=== PATIENT | male | born 1925 | race Caucasian/White ===

== ENCOUNTER 2016-07-08 15:16 | Emergency (ER) | payer MEDICARE, OTHER ==
--- NOTE | 2016-07-08 15:28 | EDM.PDOC ---
ED HPI Skin/Rash - General Chief Complaint: Skin Complaint Stated Complaint: CUT ON RT HAND Time Seen by Provider: 07/08/16 15:31 Source: Reports: Patient, Family History Limitations: Reports: No limitations - History of Present Illness INITIAL COMMENTS - FREE TEXT/NARRATIVE: HISTORY AND PHYSICAL: [89-year-old male who presents with a skin tear to the dorsum of his right hand has been present for 2 days and continues to have weeping and bleeding] History of Present Illness: [ injury with gauze wrapped around the hand] Patient says he hit his hand during his sleep and sustained the injury Review of Systems: As per history of present illness and below otherwise all systems reviewed and negative. Past medical history: As per history of present illness and as reviewed below otherwise noncontributory. Surgical history: As per history of present illness and as reviewed below otherwise noncontributory. Social history: No reported history of drug or alcohol abuse. Family history: As per history of present illness and as reviewed below otherwise noncontributory. Physical exam: alert and oriented answers questions appropriately HEENT: Atraumatic, normocehpalic, pupils reactive, negative for conjunctival pallor or scleral icterus, mucous membranes moist, throat clear, neck supple, nontender, trachea midline. Lungs: Clear to auscultation, breath sounds equal bilaterally, chest non tender. Heart: S1S2, regular, negative for clicks, rubs, or JVD. Abdomen: Soft, nondistended, nontender. Negative for masses or hepatossplenmegaly. Negative for costovertebral tenderness. Pelvis: Stable nontender. Genitourinary: Deferred. Rectal: Deferred Extremities: Dorsum of right hand with angle skin tear 3 cm in diameter, negative for cords or calf pain. He has full range of motion incision is intact to finger. Capillary refill less than 2 seconds. Neurovascular unremarkable. Neuro: Awake, alert, oriented. Cranial nerves II through XII unremarkable. Cerebellum unremarkable. Motor and sensory unremarkable throughout. Exam nonfocal. Benzocaine applied to either side of the skin tear half-inch Steri-Strips were utilized and skin was pulled into correct position. Mild oozing hemostasis was attained. Diagnostics: [] Therapeutics: [Steri-Strips applied] Impression: [Skin tear] Plan: [Home Instructions on dressing there is with gauze pads should the bleeding recur not to pull the tape off follow up with your primary care provider ] Definitive disposition and diagnosis as appropriate pending reevaluation and review of above. Timing: Reports: still present Location, Skin: Reports: upper extremity, right - Related Data Allergies Allergy/AdvReac Type Severity Reaction Status Date / Time No Known Allergies Allergy Verified 10/06/14 12:12 Home Meds: Ambulatory Orders Medication Instructions Recorded Confirmed Furosemide [Furosemide] 40 mg PO ASDIRECTED 10/06/14 05/01/15 Insuln Asp Prot/Insulin Aspart 12 unit SQ DAILY 10/06/14 05/01/15 [NovoLOG Mix 70-30] Lisinopril [Lisinopril] 5 mg PO DAILY 10/06/14 05/01/15 Metoprolol Tartrate [Lopressor] 25 mg PO BID 10/06/14 05/01/15 Simvastatin [Simvastatin] 20 mg PO BEDTIME 10/06/14 05/01/15 Warfarin Sodium [Warfarin Sodium] 5 mg PO DAILY 10/06/14 05/15/15 metFORMIN [Glucophage] 500 mg PO TID 10/06/14 05/01/15 Acetaminophen with Codeine 1 tab PO QID 05/01/15 05/01/15 [Acetaminophen-Cod #3] Ascorbic Acid/Bioflavonoids [Vit 1 tab PO DAILY 05/01/15 05/01/15 C-Bioflavonoids SA] Aspirin [Low Dose Aspirin EC] 1 tab PO DAILY 05/01/15 05/01/15 Calcium Carbonate/Vitamin D3 1 tab PO DAILY 05/01/15 05/01/15 [Calcium 600 + Vit D 200] Digoxin 1 tab PO DAILY 05/01/15 05/01/15 Multivitamin [Multi-Day Vitamins] 1 tab PO DAILY 05/01/15 05/01/15 Polyethylene Glycol 3350 1 dose PO ASDIRECTED 05/01/15 05/01/15 Past Medical History HEENT History: Reports: Hard of hearing, Impaired vision, Other (see below) Other HEENT History: wears glasses, has upper dentures, will receive hearing aides next month, Macular Degeneration Cardiovascular History: Reports: Afib, Heart Failure, High cholesterol, Hypertension Other Cardiovascular History: wears support hose every other day Respiratory History: Reports: None Gastrointestinal History: Reports: None Genitourinary History: Reports: Retention, urinary Musculoskeletal History: Reports: Arthritis Neurological History: Reports: Other (see below) Other Neuro History: states has "dizzy spells" Psychiatric History: Reports: None Endocrine/Metabolic History: Reports: Diabetes, type II Hematologic History: Reports: None Immunologic History: Reports: None Oncologic (Cancer) History: Reports: None Dermatologic History: Reports: None - Past Surgical History Head Surgeries/Procedures: Reports: None HEENT Surgical History: Reports: None Cardiovascular Surgical History: Reports: None Respiratory Surgical History: Reports: None GI Surgical History: Reports: None Male Surgical History: Reports: TURP-Transurethral resection of prostate Endocrine Surgical History: Reports: None Neurological Surgical History: Reports: None Musculoskeletal Surgical History: Reports: Hip replacement, Other (see below) Other Musculoskeletal Surgeries/Procedures:: 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 ED EXAM, SKIN/RASH Exam: See Below Eye Exam: bilateral eye: abnormal EOM ED SKIN PROCEDURES - Laceration/Wound Repair Right Middle Anterior Hand Lac/wound length in cm: 3 Appearance: superficial Distal NVT: neuro & vascular intact, no tendon injury Closed with: steri-strips Departure - Departure Time of Disposition: 15:36 Disposition: Home, Self-Care 01 Condition: good Clinical Impression: Skin tear of right hand without complication Qualifiers: Encounter type: initial encounter Qualified Code(s): S61.411A - Laceration without foreign body of right hand, initial encounter Forms: ED Department Discharge
[2016-07-08 15:52] VITALS: BP 104/70
== END 2016-07-08 15:50 | disposition home or self-care (01) ==
LOC: MW.ED 15:16
DX: S61.411A Laceration without foreign body of right hand, initial encounter (principal); I48.91 Unspecified atrial fibrillation; I11.0 Hypertensive heart disease with heart failure; I50.9 Heart failure, unspecified; E78.00 Pure hypercholesterolemia, unspecified; M19.90 Unspecified osteoarthritis, unspecified site; E11.9 Type 2 diabetes mellitus without complications; Z79.4 Long term (current) use of insulin; Z79.899 Other long term (current) drug therapy; Z79.82 Long term (current) use of aspirin; Z87.891 Personal history of nicotine dependence; Z96.643 Presence of artificial hip joint, bilateral; W26.8XXA Contact with other sharp object(s), not elsewhere classified, initial encounter; Y93.84 Activity, sleeping
CPT/HCPCS: 99282

== ENCOUNTER 2017-03-26 00:47 | Observation (INO) | payer MEDICARE, OTHER ==
[2017-03-26] MEDS ORDERED: Sodium Chloride 0.9% 2.5 ML Syringe FLUSH PRN ×2 (00:59→03:24)
[2017-03-26] MEDS ORDERED: Sodium Chloride 0.9% 10 ML Syringe FLUSH PRN ×2 (00:59→03:24)
--- NOTE | 2017-03-26 01:09 | EDM.PDOC ---
ED HPI GENERAL MEDICAL PROBLEM - General Chief Complaint: Respiratory Problem Stated Complaint: CHEST PAINS Time Seen by Provider: 03/26/17 01:06 - History of Present Illness INITIAL COMMENTS - FREE TEXT/NARRATIVE: HISTORY AND PHYSICAL: History of present illness: Patient 89-year-old white male patient coronary artery disease including stent placement 3 proximally one year prior he also has history of chronic atrial fibrillation and is on warfarin he presents tonight with 6 months of shortness of breath that has gotten progressively worse last 24 hours with associated chest pain he did see his Dr. Pollock recently do not feel is cardiac or pulmonary perforation he denies palpitations nausea vomiting or diaphoresis Review of systems: As per history of present illness and below otherwise all systems reviewed and negative. Past medical history: As per history of present illness and as reviewed below otherwise noncontributory. Surgical history: As per history of present illness and as reviewed below otherwise noncontributory. Social history: No reported history of drug or alcohol abuse. Family history: As per history of present illness and as reviewed below otherwise noncontributory. Physical exam: HEENT: Atraumatic, normocephalic, pupils reactive, negative for conjunctival pallor or scleral icterus, mucous membranes moist, throat clear, neck supple, nontender, trachea midline. Lungs: Clear to auscultation, breath sounds equal bilaterally, chest nontender. Heart: S1S2, irregular, negative for clicks, rubs, or JVD. Abdomen: Soft, nondistended, nontender. Negative for masses or hepatosplenomegaly. Negative for costovertebral tenderness. Pelvis: Stable nontender. Genitourinary: Deferred. Rectal: Deferred. Extremities: Atraumatic, negative for cords or calf pain. Neurovascular unremarkable. Neuro: Awake, alert, oriented. Cranial nerves II through XII unremarkable. Cerebellum unremarkable. Motor and sensory unremarkable throughout. Exam nonfocal. Diagnostics: CBC CMP troponin PT/INR chest x-ray EKG BNP Therapeutics: IV O2 monitor Impression: #1 dyspnea #2 chest pain #3 history of atrial fibrillation #4 history of coronary artery disease Definitive disposition and diagnosis as appropriate pending reevaluation and review of above. Chest Pain Score (Numeric/FACES): 8 - Related Data Allergies Allergy/AdvReac Type Severity Reaction Status Date / Time No Known Allergies Allergy Verified 03/26/17 00:55 Home Meds: Home Meds Furosemide [Furosemide] 40 mg PO ASDIRECTED 10/06/14 [History] Insuln Asp Prot/Insulin Aspart [NovoLOG Mix 70-30] 12 unit SQ DAILY 10/06/14 [ History] Metoprolol Tartrate [Lopressor] 25 mg PO BID 10/06/14 [History] Simvastatin [Simvastatin] 20 mg PO BEDTIME 10/06/14 [History] Warfarin Sodium [Warfarin Sodium] 5 mg PO DAILY 10/06/14 [History] metFORMIN [Glucophage] 500 mg PO TID 10/06/14 [History] Acetaminophen with Codeine [Acetaminophen-Cod #3] 1 tab PO QID 05/01/15 [History ] Aspirin [Low Dose Aspirin EC] 1 tab PO DAILY 05/01/15 [History] Past Medical History HEENT History: Reports: Hard of Hearing, Impaired Vision, Other (See Below) Other HEENT History: wears glasses, has upper dentures, will receive hearing aides next month, Macular Degeneration Cardiovascular History: Reports: Afib, Heart Failure, High Cholesterol, Hypertension, Stents Other Cardiovascular History: wears support hose every other day Respiratory History: Reports: None Gastrointestinal History: Reports: None Genitourinary History: Reports: Retention, Urinary Musculoskeletal History: Reports: Arthritis Neurological History: Reports: Other (See Below) Other Neuro History: states has "dizzy spells" Psychiatric History: Reports: None Endocrine/Metabolic History: Reports: Diabetes, Type II Hematologic History: Reports: None Immunologic History: Reports: None Oncologic (Cancer) History: Reports: None Dermatologic History: Reports: None - Past Surgical History Male Surgical History: Reports: TURP-Transurethral Resection of Prostate Musculoskeletal Surgical History: Reports: Hip Replacement, Other (See Below) Social & Family History - Tobacco Use Smoking Status *Q: Never Smoker Second Hand Smoke Exposure: No - Alcohol Use Days Per Week of Alcohol Use: 2 - Recreational Drug Use Recreational Drug Use: No Drug Use in Last 12 Months: No ED ROS GENERAL - Review of Systems Review Of Systems: ROS reveals no pertinent complaints other than HPI. ED EXAM, GENERAL - Physical Exam Exam: See Below (Dictation) Course - Vital Signs Last Recorded V/S: Last Vital Signs Temp 35.9 C 03/26/17 01:29 Pulse 64 03/26/17 01:38 Resp 17 03/26/17 01:38 BP 113/62 03/26/17 01:38 Pulse Ox 99 03/26/17 01:38 - Orders/Labs/Meds Orders: Active Orders 24 hr Category Date Time Status Cardiac Monitoring [RC] . DIRECTED Care 03/26/17 00:59 Active EKG Documentation Completion [RC] STAT Care 03/26/17 00:59 Active Oxygen Therapy, ED [RC] ASDIRECTED Care 03/26/17 00:59 Active Pulse Oximetry [RC] ASDIRECTED Care 03/26/17 00:59 Active Chest 1V Frontal [CR] Stat Exams 03/26/17 01:02 Taken Chest 2V [CR] Stat Exams 03/26/17 01:00 Stop Req Furosemide [Lasix] Med 03/26/17 02:28 Once 40 mg IVPUSH NOW ONE Sodium Chloride 0.9% [Saline Flush] Med 03/26/17 00:59 Active 10 ml FLUSH ASDIRECTED PRN Sodium Chloride 0.9% [Saline Flush] Med 03/26/17 00:59 Active 2.5 ml FLUSH ASDIRECTED PRN Saline Lock Insert [OM.PC] Stat Oth 03/26/17 00:59 Ordered Medication Orders Furosemide (Lasix) 40 mg IVPUSH NOW ONE Stop: 03/26/17 02:29 Sodium Chloride (Saline Flush) 10 ml FLUSH ASDIRECTED PRN PRN Reason: Keep Vein Open Last Admin: 03/26/17 01:25 Dose: 10 ml Sodium Chloride (Saline Flush) 2.5 ml FLUSH ASDIRECTED PRN PRN Reason: Keep Vein Open Last Admin: 03/26/17 01:25 Dose: 2.5 ml Labs: Laboratory Tests 03/26/17 03/26/17 03/26/17 Range/Units 00:19 00:19 00:19 WBC 6.23 (4.0-11.0) K/uL RBC 4.38 L (4.50-5.90) M/uL Hgb 13.6 (13.0-17.0) g/dL Hct 42.2 (38.0-50.0) % MCV 96.3 (80.0-98.0) fL MCH 31.1 (27.0-32.0) pg MCHC 32.2 (31.0-37.0) g/dL RDW Std Deviation 49.6 (28.0-62.0) fl RDW Coeff of Cleopatra 14 (11.0-15.0) % Plt Count 160 (150-400) K/uL MPV 9.80 (7.40-12.00) fL Neut % (Auto) 65.3 (48.0-80.0) % Lymph % (Auto) 22.8 (16.0-40.0) % Green % (Auto) 10.0 (0.0-15.0) % Eos % (Auto) 1.4 (0.0-7.0) % Baso % (Auto) 0.5 (0.0-1.5) % Neut # (Auto) 4.1 (1.4-5.7) K/uL Lymph # (Auto) 1.4 (0.6-2.4) K/uL Green # (Auto) 0.6 (0.0-0.8) K/uL Eos # (Auto) 0.1 (0.0-0.7) K/uL Baso # (Auto) 0.0 (0.0-0.1) K/uL INR 2.26 H (0.86-1.11) Sodium 140 (136-146) mmol/L Potassium 4.8 (3.5-5.1) mmol/L Chloride 105 (98-110) mmol/L Carbon Dioxide 23 (21-31) mmol/L BUN 28 H (6.0-23.0) mg/dL Creatinine 0.9 (0.6-1.5) mg/dL Est Cr Clr Drug Dosing 50.21 mL/min Estimated GFR (MDRD) > 60.0 ml/min Glucose 115 H (60-110) mg/dL Calcium 9.3 (8.8-10.8) mg/dL Total Bilirubin 1.6 H (0.1-1.5) mg/dL AST 26 (5-40) IU/L ALT 22 (8-54) IU/L Alkaline Phosphatase 60 (40-150) CK-MB (CK-2) 7.1 H (0-6.6) ng/ml Troponin I < 0.10 (0.0-0.29) NG/ML B-Natriuretic Peptide (<100) PG/ML Total Protein 6.8 (6.0-8.0) g/dL Albumin 4.2 (3.4-4.8) g/dL Globulin 2.6 (2.0-3.5) g/dL Albumin/Globulin Ratio 1.6 (1.3-2.8) 03/26/17 Range/Units 00:19 WBC (4.0-11.0) K/uL RBC (4.50-5.90) M/uL Hgb (13.0-17.0) g/dL Hct (38.0-50.0) % MCV (80.0-98.0) fL MCH (27.0-32.0) pg MCHC (31.0-37.0) g/dL RDW Std Deviation (28.0-62.0) fl RDW Coeff of Cleopatra (11.0-15.0) % Plt Count (150-400) K/uL MPV (7.40-12.00) fL Neut % (Auto) (48.0-80.0) % Lymph % (Auto) (16.0-40.0) % Green % (Auto) (0.0-15.0) % Eos % (Auto) (0.0-7.0) % Baso % (Auto) (0.0-1.5) % Neut # (Auto) (1.4-5.7) K/uL Lymph # (Auto) (0.6-2.4) K/uL Green # (Auto) (0.0-0.8) K/uL Eos # (Auto) (0.0-0.7) K/uL Baso # (Auto) (0.0-0.1) K/uL INR (0.86-1.11) Sodium (136-146) mmol/L Potassium (3.5-5.1) mmol/L Chloride (98-110) mmol/L Carbon Dioxide (21-31) mmol/L BUN (6.0-23.0) mg/dL Creatinine (0.6-1.5) mg/dL Est Cr Clr Drug Dosing mL/min Estimated GFR (MDRD) ml/min Glucose (60-110) mg/dL Calcium (8.8-10.8) mg/dL Total Bilirubin (0.1-1.5) mg/dL AST (5-40) IU/L ALT (8-54) IU/L Alkaline Phosphatase (40-150) CK-MB (CK-2) (0-6.6) ng/ml Troponin I (0.0-0.29) NG/ML B-Natriuretic Peptide 2124 H (<100) PG/ML Total Protein (6.0-8.0) g/dL Albumin (3.4-4.8) g/dL Globulin (2.0-3.5) g/dL Albumin/Globulin Ratio (1.3-2.8) Meds: Medications Generic Name Dose Route Start Last Admin Trade Name Freq PRN Reason Stop Dose Admin Furosemide 40 mg 03/26/17 02:28 Lasix IVPUSH 03/26/17 02:29 NOW ONE Sodium Chloride 10 ml 03/26/17 00:59 03/26/17 01:25 Saline Flush FLUSH 10 ml ASDIRECTED PRN Administration Keep Vein Open Sodium Chloride 2.5 ml 03/26/17 00:59 03/26/17 01:25 Saline Flush FLUSH 2.5 ml ASDIRECTED PRN Administration Keep Vein Open Discontinued Medications Generic Name Dose Route Start Last Admin Trade Name Freq PRN Reason Stop Dose Admin Aspirin 324 mg 03/26/17 01:21 03/26/17 01:26 Aspirin PO 03/26/17 01:22 324 mg ONETIME ONE Administration Nitroglycerin 1 gm 03/26/17 01:21 03/26/17 01:26 Nitro-Bid 2% TOP 03/26/17 01:22 1 gm ONETIME ONE Administration Departure - Departure Time of Disposition: 02:29 Disposition: Refer to Observation Condition: Good Clinical Impression: Dyspnea, Chest pain, Congestive heart failure - Discharge Information Forms: ED Department Discharge - My Orders Last 24 Hours: My Active Orders 03/26/17 00:59 Cardiac Monitoring [RC] . DIRECTED EKG Documentation Completion [RC] STAT Oxygen Therapy, ED [RC] ASDIRECTED Pulse Oximetry [RC] ASDIRECTED Sodium Chloride 0.9% [Saline Flush] 10 ml FLUSH ASDIRECTED PRN Sodium Chloride 0.9% [Saline Flush] 2.5 ml FLUSH ASDIRECTED PRN Saline Lock Insert [OM.PC] Stat 03/26/17 01:00 Chest 2V [CR] Stat 03/26/17 01:02 Chest 1V Frontal [CR] Stat 03/26/17 02:28 Furosemide [Lasix] 40 mg IVPUSH NOW ONE - Assessment/Plan Last 24 Hours: My Active Orders 03/26/17 00:59 Cardiac Monitoring [RC] . DIRECTED EKG Documentation Completion [RC] STAT Oxygen Therapy, ED [RC] ASDIRECTED Pulse Oximetry [RC] ASDIRECTED Sodium Chloride 0.9% [Saline Flush] 10 ml FLUSH ASDIRECTED PRN Sodium Chloride 0.9% [Saline Flush] 2.5 ml FLUSH ASDIRECTED PRN Saline Lock Insert [OM.PC] Stat 03/26/17 01:00 Chest 2V [CR] Stat 03/26/17 01:02 Chest 1V Frontal [CR] Stat 03/26/17 02:28 Furosemide [Lasix] 40 mg IVPUSH NOW ONE
[2017-03-26] MEDS ORDERED: Aspirin 81 MG Tab.Chew PO ONE (01:21)
[2017-03-26] MEDS ORDERED: Nitroglycerin 2% Oint 1 GM UD Packet TOP ONE (01:21)
[2017-03-26 01:36] LABS: CHLORIDE,CL 105 mmol/L (98-110); SODIUM,NA 140 mmol/L (136-146)
[2017-03-26] MEDS ORDERED: Furosemide 40 MG/4 ML VIAL IVPUSH ONE (02:28)
[2017-03-26] MEDS ORDERED: Morphine 2 MG/ML Syringe IVPUSH PRN ×2 (03:24→07:47)
[2017-03-26 06:41] LABS: CHLORIDE,CL 105 mmol/L (98-110); SODIUM,NA 139 mmol/L (136-146)
--- NOTE | 2017-03-26 07:00 | PCM.HP ---
H&P History of Present Illness - General Date of Service: 03/26/17 Admit Problem/Dx: Admission Diagnosis/Problem Admission Diagnosis/Problem Chest pain Source of Information: Patient History Limitations: Reports: No Limitations - History of Present Illness Initial Comments - Free Text/Narative: 89-year-old male presenting to the emergency department with a chief complaint of chest pain and shortness of breath 1 day with past medical history of CAD with stents, A. fib on warfarin, hypertension, hyperlipidemia, and CHF. Patient states that the primary reason for coming to the emergency department was that he was having a "weird feeling in my chest". Patient exclaims that it is not exactly pain but more of a shortness of breath. States that this has been going on for several weeks but worse over the last week. States that last night he was unable sleep secondary to shortness of breath. Does say that his has been sick and was tested for the flu but was negative. He denies any overt chest pain, radiation, diaphoresis, nausea, vomiting. Patient sees Dr. Rios and states that one year ago he was having some mild chest pain. He did see a semiconductor packages sealer in [place] at which time an angiogram showed 90% occlusion of the LMA which was stented. He also states that there was 75% occlusion of another vessel and 50% occlusion of another. Patient states that he does not lay flat at night and does use a pillow secondary to shortness of breath. He does have proximal nocturnal dyspnea and orthopnea. He does not recall ever having an echocardiogram of his heart or being told that he has congestive heart failure. He reports that he felt much better after treatment in the emergency department which included 40 mg of IV Lasix. He denies any pedal edema. He does have a history of A. fib rate controlled and is on warfarin. He currently denies any chest pain, palpitations, syncopal episodes, or focal neurologic deficits. Emergency department: CBC was unremarkable, INR was therapeutic at 2.26, troponin 2 was negative, CK- MB was elevated at 7.1 and BNP was elevated 2124, bilirubin was also elevated at 1.7, flu was negative, chest x-ray revealed no significant infiltrate or pulmonary edema, however there was cardiomegaly and minimal atelectasis in the left lung base. ECG revealed A. fib rate controlled at 76 with LAF block and minimal ST depression in the lateral leads. He was given 40 mg Lasix IV 1, ASA 324 mg, 2 mg morphine 1, and nitroglycerin. Patient was admitted for atypical chest pain. Chest Pain Score (Numeric/FACES): 0 - Related Data Allergies/Adverse Reactions: Allergies Allergy/AdvReac Type Severity Reaction Status Date / Time No Known Allergies Allergy Verified 03/26/17 00:55 Home Medications: Home Meds Furosemide [Furosemide] 40 mg PO DAILY 10/06/14 [History] Insuln Asp Prot/Insulin Aspart [NovoLOG Mix 70-30] 12 unit SQ BID 10/06/14 [ History] Metoprolol Tartrate [Lopressor] 25 mg PO BID 10/06/14 [History] Simvastatin [Simvastatin] 20 mg PO BEDTIME 10/06/14 [History] Warfarin Sodium [Warfarin Sodium] 5 mg PO DAILY 10/06/14 [History] metFORMIN [Glucophage] 500 mg PO TID 10/06/14 [History] Acetaminophen with Codeine [Acetaminophen-Cod #3] 1 tab PO QID 05/01/15 [History ] Past Medical History HEENT History: Reports: Hard of Hearing, Impaired Vision, Other (See Below) Other HEENT History: wears glasses, has upper dentures, will receive hearing aides next month, Macular Degeneration Cardiovascular History: Reports: Afib, Heart Failure, High Cholesterol, Hypertension, Stents Other Cardiovascular History: wears support hose every other day Respiratory History: Reports: None Gastrointestinal History: Reports: None Genitourinary History: Reports: Retention, Urinary Musculoskeletal History: Reports: Arthritis Neurological History: Reports: Other (See Below) Other Neuro History: states has "dizzy spells" Psychiatric History: Reports: None Endocrine/Metabolic History: Reports: Diabetes, Type II Hematologic History: Reports: None Immunologic History: Reports: None Oncologic (Cancer) History: Reports: None Dermatologic History: Reports: None - Infectious Disease History Infectious Disease History: Reports: Chicken Pox, Measles, Mumps - Past Surgical History Head Surgeries/Procedures: Reports: None Male Surgical History: Reports: TURP-Transurethral Resection of Prostate Musculoskeletal Surgical History: Reports: Hip Replacement, Other (See Below) Social & Family History - Family History Family Medical History: Noncontributory - Tobacco Use Smoking Status *Q: Never Smoker Used Tobacco, but Quit: Yes Month Tobacco Last Used: 1997 Second Hand Smoke Exposure: No - Caffeine Use Caffeine Use: Reports: Coffee - Alcohol Use Days Per Week of Alcohol Use: 2 - Recreational Drug Use Recreational Drug Use: No Drug Use in Last 12 Months: No H&P Review of Systems - Review of Systems: Review Of Systems: See Below General: Reports: Fatigue. Denies: Fever, Chills, Weakness, Diaphoresis HEENT: Denies: Headaches, Sore Throat Pulmonary: Reports: Shortness of Breath, Cough. Denies: Wheezing, Sputum Cardiovascular: Reports: Dyspnea on Exertion, Orthopnea. Denies: Chest Pain, Palpitations, Edema, Syncope Gastrointestinal: Denies: Abdominal Pain, Black Stool, Bloody Stool, Diarrhea, Nausea, Vomiting Genitourinary: Denies: Dysuria, Hematuria Musculoskeletal: Denies: Neck Pain, Leg Pain Skin: Denies: Cyanosis Psychiatric: Denies: Confusion Neurological: Denies: Confusion, Dizziness, Headache Hematologic/Lymphatic: Denies: Anemia Exam - Exam Exam: See Below - Vital Signs Vital Signs: Last Vital Signs Temp 97 F 03/26/17 03:07 Pulse 83 03/26/17 03:07 Resp 18 03/26/17 03:07 BP 117/64 03/26/17 03:07 Pulse Ox 98 03/26/17 03:07 Weight: 80.4 kg - Exam Quality Assessment: DVT Prophylaxis General: Alert, Oriented, Cooperative HEENT: Conjunctiva Clear, EACs Clear, EOMI, Hearing Intact, Mucosa Moist & [employer] , Nares Patent, Normal Nasal Septum, Posterior Pharynx Clear, PERRLA Neck: Supple, Trachea Midline. No: JVD Lungs: Normal Respiratory Effort, Crackles (LLB) Cardiovascular: Regular Rate, Systolic Murmur GI/Abdominal Exam: Normal Bowel Sounds, Soft, Non-Tender, No Organomegaly, No Distention Back Exam: Normal Inspection Extremities: Normal Inspection, Non-Tender, Normal Capillary Refill, Pedal Edema (mild sock line edema) Peripheral Pulses: 2+: Radial (L), Radial (R), Posterior Tibial (L), Posterior Tibial (R), Dorsalis Pedis (L), Dorsalis Pedis (R) Skin: Warm, Dry, Intact Neurological: Cranial Nerves Intact Neuro Extensive - Mental Status: Alert, Oriented x3, Normal Mood/Affect, Normal Cognition Neuro Extensive - Motor, Sensory, Reflexes: CN II-XII Intact Psychiatric: Alert, Normal Affect, Normal Mood - Patient Data Lab Results Last 24 hrs: Laboratory Results - last 24 hr 03/26/17 03/26/17 03/26/17 Range/Units 06:11 06:11 06:42 WBC 5.98 (4.0-11.0) K/uL RBC 4.44 L (4.50-5.90) M/uL Hgb 13.8 (13.0-17.0) g/dL Hct 41.6 (38.0-50.0) % MCV 93.7 (80.0-98.0) fL MCH 31.1 (27.0-32.0) pg MCHC 33.2 (31.0-37.0) g/dL RDW Std Deviation 49.1 (28.0-62.0) fl RDW Coeff of Cleopatra 14 (11.0-15.0) % Plt Count 155 (150-400) K/uL MPV 9.80 (7.40-12.00) fL Neut % (Auto) 68.1 (48.0-80.0) % Lymph % (Auto) 21.2 (16.0-40.0) % Swain % (Auto) 8.9 (0.0-15.0) % Eos % (Auto) 1.5 (0.0-7.0) % Baso % (Auto) 0.3 (0.0-1.5) % Neut # (Auto) 4.1 (1.4-5.7) K/uL Lymph # (Auto) 1.3 (0.6-2.4) K/uL Swain # (Auto) 0.5 (0.0-0.8) K/uL Eos # (Auto) 0.1 (0.0-0.7) K/uL Baso # (Auto) 0.0 (0.0-0.1) K/uL Nucleated RBC % 0.0 /100WBC Nucleated RBCs # 0 K/uL Sodium 139 (136-146) mmol/L Potassium 3.9 (3.5-5.1) mmol/L Chloride 105 (98-110) mmol/L Carbon Dioxide 22 (21-31) mmol/L BUN 30 H (6.0-23.0) mg/dL Creatinine 0.8 (0.6-1.5) mg/dL Est Cr Clr Drug Dosing 56.78 mL/min Estimated GFR (MDRD) > 60.0 ml/min Glucose 121 H (60-110) mg/dL POC Glucose 104 (60-110) mg/dL Calcium 9.1 (8.8-10.8) mg/dL Magnesium 1.7 (1.5-2.3) mEq/L Total Bilirubin 1.7 H (0.1-1.5) mg/dL AST 25 (5-40) IU/L ALT 22 (8-54) IU/L Alkaline Phosphatase 57 (40-150) Troponin I < 0.10 (0.0-0.29) NG/ML Total Protein 6.8 (6.0-8.0) g/dL Albumin 4.2 (3.4-4.8) g/dL Globulin 2.6 (2.0-3.5) g/dL Albumin/Globulin Ratio 1.6 (1.3-2.8) Result Diagrams: 03/26/17 06:11 03/26/17 06:11 *Q Meaningful Use (ADM) - VTE *Q VTE Criteria *Q: - Stroke *Q Stroke Criteria *Q: - AMI *Q AMI Criteria *Q: - Problem List (1) Atypical chest pain SNOMED Code(s): 345699044 ICD Code: R07.89 - OTHER CHEST PAIN Status: Acute Priority: High Current Visit: Yes (2) A-fib SNOMED Code(s): 99075542 ICD Code: I48.91 - UNSPECIFIED ATRIAL FIBRILLATION Status: Chronic Priority: Medium Current Visit: Yes Qualifiers: Atrial fibrillation type: persistent Qualified Code(s): I48.1 - Persistent atrial fibrillation (3) HTN (hypertension) SNOMED Code(s): 68032478 ICD Code: I10 - ESSENTIAL (PRIMARY) HYPERTENSION Status: Chronic Priority : Low Current Visit: Yes Qualifiers: Hypertension type: essential hypertension Qualified Code(s): I10 - Essential (primary) hypertension (4) Hyperlipemia SNOMED Code(s): 23827697 ICD Code: E78.5 - HYPERLIPIDEMIA, UNSPECIFIED Status: Chronic Priority: Medium Current Visit: Yes Qualifiers: Hyperlipidemia type: unspecified Qualified Code(s): E78.5 - Hyperlipidemia , unspecified (5) DMII (diabetes mellitus, type 2) SNOMED Code(s): 95316634 ICD Code: E11.9 - TYPE 2 DIABETES MELLITUS WITHOUT COMPLICATIONS Status: Chronic Priority: Low Current Visit: Yes Qualifiers: Diabetes mellitus complication status: with unspecified complications Diabetes mellitus terminal system operator insulin use: unspecified residential insulin use status Qualified Code(s): E11.8 - Type 2 diabetes mellitus with unspecified complications (6) Congestive heart failure SNOMED Code(s): 42646676 ICD Code: I50.9 - HEART FAILURE, UNSPECIFIED Status: Suspected Priority: High Current Visit: Yes Qualifiers: Congestive heart failure type: unspecified congestive heart failure type Congestive heart failure chronicity: unspecified congestive heart failure chronicity Qualified Code(s): I50.9 - Heart failure, unspecified Problem List Initiated/Reviewed/Updated: Yes Orders Last 24hrs: Active Orders 24 hr Category Date Time Status Blood Glucose Check, Bedside [RC] QIDACANDBED Care 03/26/17 07:30 Active Communication Order [RC] STAT Care 03/26/17 03:24 Active Telemetry Monitoring [Cardiac Monitoring] [RC] Q8H Care 03/26/17 02:39 Active Heart Healthy Diet [DIET] Diet 03/26/17 Breakfast Active TROPONIN I [CHEM] Q6H Lab 03/26/17 12:19 Ordered Insuln Asp Prot/Insulin Aspart [NovoLOG Mix 70-30] Med 03/26/17 08:00 Active See Dose Instructions SUBCUT BID Morphine Med 03/26/17 03:24 Active 2 mg IVPUSH Q2H PRN Sodium Chloride 0.9% [Saline Flush] Med 03/26/17 03:24 Active 10 ml FLUSH ASDIRECTED PRN Sodium Chloride 0.9% [Saline Flush] Med 03/26/17 03:24 Active 2.5 ml FLUSH ASDIRECTED PRN Saline Lock Insert [OM.PC] Routine Oth 03/26/17 03:24 Ordered Medication Orders Insulin Aspart (Novolog Mix 70-30) 0 unit SUBCUT BID KYLE Morphine Sulfate (Morphine) 2 mg IVPUSH Q2H PRN PRN Reason: Pain Sodium Chloride (Saline Flush) 10 ml FLUSH ASDIRECTED PRN PRN Reason: Keep Vein Open Last Admin: 03/26/17 01:25 Dose: 10 ml Sodium Chloride (Saline Flush) 2.5 ml FLUSH ASDIRECTED PRN PRN Reason: Keep Vein Open Last Admin: 03/26/17 01:25 Dose: 2.5 ml Sodium Chloride (Saline Flush) 10 ml FLUSH ASDIRECTED PRN PRN Reason: Keep Vein Open Sodium Chloride (Saline Flush) 2.5 ml FLUSH ASDIRECTED PRN PRN Reason: Keep Vein Open Assessment/Plan Comment:: 89-year-old male admitted 03/26/17 for atypical chest pain with past medical history of CAD with stent, A. fib on warfarin, hypertension, hyperlipidemia, and type 2 diabetes. Atypical chest pain: As per patient is more shortness of breath and actual pain. Patient has had chest pain in the past for which he had his stent placed one year ago in [place]. This is not similar to that pain. Patient's BMP was 2123 and I suspect that this may be congestive heart failure exacerbation. He did improve with 40 of Lasix in the ED. We will give him another 40 of Lasix this morning as well as schedule daily. Placed on strict I and O's, daily weights, fluid restriction of 1200. He is placed on telemetry and serial troponins are ordered. We'll get an echocardiogram to see overall heart function. Will need a cardiology follow-up after discharge. CAD with stent: As per patient it sounds like the LAD was 90% stenosed and stented one year ago. He also reports that there was 75% occlusion and 50% occlusion of other vessels. He did have some subjective minimal ST depression in the lateral leads which we will monitor very closely on telemetry. Initial troponins have been negative. CK-MB was elevated at 7.1. A. fib: Currently rate controlled and therapeutic on his warfarin with an INR 2.26. Continue home Coumadin. Will monitor on telemetry. Hypertension: Currently controlled we'll continue home medications. Hyperlipidemia: Controlled we'll continue home medications and get a lipid panel tomorrow morning. Type 2 diabetes: We started home NovoLog 70/30 and 3 times a day before meals blood sugar checking. VTE proph: On Warfarin, SCD Dispo: 1-2 days pending.
[2017-03-26] MEDS ORDERED: Temazepam 15 MG Cap PO PRN (07:47)
[2017-03-26] MEDS ORDERED: Ondansetron 4 MG/2 ML SDV IVPUSH PRN (07:47)
[2017-03-26] MEDS ORDERED: Ondansetron 4 MG Tab.DIS PO PRN (07:47)
[2017-03-26] MEDS ORDERED: Acetaminophen 325 MG Tab PO PRN (07:47)
[2017-03-26] MEDS: Insuln Aspart Prot/Insulin Aspart 100 Units/ML 3 ML FlexPen SUBCUT SCH ×3 (08:46→18:22)
[2017-03-26] MEDS: Furosemide 40 MG/4 ML VIAL IVPUSH SCH (08:48)
[2017-03-26] MEDS ORDERED: Insuln Aspart Prot/Insulin Aspart 100 Units/ML 3 ML FlexPen SUBCUT SCH (17:00)
[2017-03-27 07:03] LABS: CHLORIDE,CL 104 mmol/L (98-110); SODIUM,NA 142 mmol/L (136-146)
[2017-03-27] MEDS: Insuln Aspart Prot/Insulin Aspart 100 Units/ML 3 ML FlexPen SUBCUT SCH (08:04)
[2017-03-27] MEDS: Furosemide 40 MG/4 ML VIAL IVPUSH SCH (08:06)
[2017-03-27 13:49] VITALS: BP 102/56
--- NOTE | 2017-03-27 16:37 | PCM.DCSUM1 ---
Discharge Summary - Hospital Course Free Text/Narrative:: Admission date: March 26, 2017 Discharge date: March 27, 2017 Admission diagnosis: #1. Atypical chest pain #2. Shortness of breath #3. History of coronary artery disease, atrial fibrillation, hypertension, hyperlipidemia, type 2 diabetes Discharge diagnosis: #1. Atypical chest pain and shortness of breath resolved #2. History of coronary artery disease, atrial fibrillation, hypertension, hyperlipidemia, type 2 diabetes Hospital course: 89-year-old pleasant male with the above-mentioned past medical history presented to the emergency department on March 26 complaining of shortness of breath that had been ongoing for several weeks that had been acutely worsening. Patient states initially that he is experiencing chest pain although he wouldn' t more so described as shortness of breath. He was then admitted for observation and for diuresis. Patient was given IV Lasix to which she responded well to. Ins and outs recorded demonstrate -2.5 L diuresis. The next morning when I evaluated the patient, he tells me that his shortness of breath greatly improved. He was breathing well without the aid of any oxygen. He denied any chest pain, numbness or tingling. Patient's INR was therapeutic on arrival. Warfarin was continued in the hospital. An echocardiogram was obtained secondary to the history of coronary artery disease with stent placement along with likely diagnosis of congestive heart failure as well. He is to follow up on echocardiogram with his primary care provider within 1-2 weeks. Patient is advised to return if he experiences any chest pain, shortness of breath again. Emphasis on making sure that he takes his medications are as prescribed especially the Lasix. Patient agreed to the plan. - Discharge Data Discharge Date: 03/27/17 Discharge Disposition: Home, Self-Care 01 Condition: Good - Patient Instructions Diet: Heart Healthy Diet Activity: As Tolerated - Discharge Plan Home Medications: Home Meds Furosemide 40 mg PO DAILY 10/06/14 [History] Insuln Asp Prot/Insulin Aspart [NovoLOG Mix 70-30] 12 unit SQ BID 10/06/14 [ History] Metoprolol Tartrate [Lopressor] 25 mg PO BID 10/06/14 [History] Simvastatin 20 mg PO BEDTIME 10/06/14 [History] Warfarin Sodium 5 mg PO DAILY 10/06/14 [History] metFORMIN [Glucophage] 500 mg PO TID 10/06/14 [History] Acetaminophen with Codeine [Acetaminophen-Cod #3] 1 tab PO QID 05/01/15 [History ] Patient Handouts: Nonspecific Chest Pain, [id number] Referrals: [facility] [Outside] Evan Rios MD [Physician] - 04/05/17 10:15 am - Discharge Summary/Plan Comment Discharge Summary/Plan Comment: Admission date: March 26, 2017 Discharge date: March 27, 2017 Admission diagnosis: #1. Atypical chest pain #2. Shortness of breath #3. History of coronary artery disease, atrial fibrillation, hypertension, hyperlipidemia, type 2 diabetes Discharge diagnosis: #1. Atypical chest pain and shortness of breath resolved #2. History of coronary artery disease, atrial fibrillation, hypertension, hyperlipidemia, type 2 diabetes Hospital course: 89-year-old pleasant male with the above-mentioned past medical history presented to the emergency department on March 26 complaining of shortness of breath that had been ongoing for several weeks that had been acutely worsening. Patient states initially that he is experiencing chest pain although he wouldn' t more so described as shortness of breath. He was then admitted for observation and for diuresis. Patient was given IV Lasix to which she responded well to. Ins and outs recorded demonstrate -2.5 L diuresis. The next morning when I evaluated the patient, he tells me that his shortness of breath greatly improved. He was breathing well without the aid of any oxygen. He denied any chest pain, numbness or tingling. Patient's INR was therapeutic on arrival. Warfarin was continued in the hospital. An echocardiogram was obtained secondary to the history of coronary artery disease with stent placement along with likely diagnosis of congestive heart failure as well. He is to follow up on echocardiogram with his primary care provider within 1-2 weeks. Patient is advised to return if he experiences any chest pain, shortness of breath again. Emphasis on making sure that he takes his medications are as prescribed especially the Lasix. Patient agreed to the plan. - Patient Data Vitals - Most Recent: Last Vital Signs Temp 36.4 C 03/27/17 12:00 Pulse 70 03/27/17 12:00 Resp 16 03/27/17 12:00 BP 102/56 L 03/27/17 12:00 Pulse Ox 95 03/27/17 12:00 Weight - Most Recent: 74.888 kg I&O - Last 24 hours: Intake & Output 03/27/17 03/27/17 03/27/17 06:59 14:59 22:59 Intake Total 500 900 Output Total 400 1060 Balance 100 -160 Lab Results - Last 24 hrs: Laboratory Results - last 24 hr 03/26/17 03/26/17 03/26/17 Range/Units 12:40 16:28 21:15 WBC (4.0-11.0) K/uL RBC (4.50-5.90) M/uL Hgb (13.0-17.0) g/dL Hct (38.0-50.0) % MCV (80.0-98.0) fL MCH (27.0-32.0) pg MCHC (31.0-37.0) g/dL RDW Std Deviation (28.0-62.0) fl RDW Coeff of Clepoatra (11.0-15.0) % Plt Count (150-400) K/uL MPV (7.40-12.00) fL Nucleated RBC % /100WBC Nucleated RBCs # K/uL Sodium (136-146) mmol/L Potassium (3.5-5.1) mmol/L Chloride (98-110) mmol/L Carbon Dioxide (21-31) mmol/L BUN (6.0-23.0) mg/dL Creatinine (0.6-1.5) mg/dL Est Cr Clr Drug Dosing mL/min Estimated GFR (MDRD) ml/min Glucose (60-110) mg/dL POC Glucose 135 H 145 H 90 (60-110) mg/dL Calcium (8.8-10.8) mg/dL Triglycerides (10-190) mg/dL Cholesterol (131-240) mg/dL LDL Cholesterol, Calc (60-180) mg/dL VLDL Cholesterol (5-55) mg/dL HDL Cholesterol (40-80) mg/dL Cholesterol/HDL Ratio (3.3-6.0) 03/27/17 03/27/17 03/27/17 Range/Units 06:21 06:21 06:43 WBC 6.54 (4.0-11.0) K/uL RBC 4.60 (4.50-5.90) M/uL Hgb 14.4 (13.0-17.0) g/dL Hct 43.4 (38.0-50.0) % MCV 94.3 (80.0-98.0) fL MCH 31.3 (27.0-32.0) pg MCHC 33.2 (31.0-37.0) g/dL RDW Std Deviation 49.3 (28.0-62.0) fl RDW Coeff of Cleopatra 15 (11.0-15.0) % Plt Count 163 (150-400) K/uL MPV 10.30 (7.40-12.00) fL Nucleated RBC % 0.0 /100WBC Nucleated RBCs # 0 K/uL Sodium 142 (136-146) mmol/L Potassium 4.0 (3.5-5.1) mmol/L Chloride 104 (98-110) mmol/L Carbon Dioxide 26 (21-31) mmol/L BUN 33 H (6.0-23.0) mg/dL Creatinine 0.9 (0.6-1.5) mg/dL Est Cr Clr Drug Dosing 50.47 mL/min Estimated GFR (MDRD) > 60.0 ml/min Glucose 118 H (60-110) mg/dL POC Glucose 109 (60-110) mg/dL Calcium 8.9 (8.8-10.8) mg/dL Triglycerides 88 (10-190) mg/dL Cholesterol 119 L (131-240) mg/dL LDL Cholesterol, Calc 68 (60-180) mg/dL VLDL Cholesterol 18 (5-55) mg/dL HDL Cholesterol 33 L (40-80) mg/dL Cholesterol/HDL Ratio 3.6 (3.3-6.0) 03/27/17 Range/Units 08:00 WBC (4.0-11.0) K/uL RBC (4.50-5.90) M/uL Hgb (13.0-17.0) g/dL Hct (38.0-50.0) % MCV (80.0-98.0) fL MCH (27.0-32.0) pg MCHC (31.0-37.0) g/dL RDW Std Deviation (28.0-62.0) fl RDW Coeff of Cleopatra (11.0-15.0) % Plt Count (150-400) K/uL MPV (7.40-12.00) fL Nucleated RBC % /100WBC Nucleated RBCs # K/uL Sodium (136-146) mmol/L Potassium (3.5-5.1) mmol/L Chloride (98-110) mmol/L Carbon Dioxide (21-31) mmol/L BUN (6.0-23.0) mg/dL Creatinine (0.6-1.5) mg/dL Est Cr Clr Drug Dosing mL/min Estimated GFR (MDRD) ml/min Glucose (60-110) mg/dL POC Glucose 247 H (60-110) mg/dL Calcium (8.8-10.8) mg/dL Triglycerides (10-190) mg/dL Cholesterol (131-240) mg/dL LDL Cholesterol, Calc (60-180) mg/dL VLDL Cholesterol (5-55) mg/dL HDL Cholesterol (40-80) mg/dL Cholesterol/HDL Ratio (3.3-6.0) Med Orders - Current: Current Medications Discontinued Medications Acetaminophen (Tylenol) 650 mg PO Q4H PRN PRN Reason: Pain (Mild 1-3)/fever Aspirin (Aspirin) 324 mg PO ONETIME ONE Stop: 03/26/17 01:22 Last Admin: 03/26/17 01:26 Dose: 324 mg Furosemide (Lasix) 40 mg IVPUSH NOW ONE Stop: 03/26/17 02:29 Last Admin: 03/26/17 02:34 Dose: 40 mg Furosemide (Lasix) 40 mg IVPUSH DAILY [facility] Last Admin: 03/27/17 08:06 Dose: 40 mg Insulin Aspart (Novolog Mix 70-30) 0 unit SUBCUT BID [facility] Last Admin: 03/26/17 08:57 Dose: Not Given Insulin Aspart (Novolog Mix 70-30) 0 unit SUBCUT BID@0700,1700 [facility] Last Admin: 03/26/17 18:42 Dose: Not Given Insulin Aspart (Novolog Mix 70-30) 0 unit SUBCUT BID@0700,1700 [facility] Last Admin: 03/27/17 08:04 Dose: 12 units Morphine Sulfate (Morphine) 2 mg IVPUSH Q2H PRN PRN Reason: Pain Last Admin: 03/26/17 15:32 Dose: 2 mg Morphine Sulfate (Morphine) 2 mg IVPUSH Q2H PRN PRN Reason: Pain (severe 7-10) Stop: 03/27/17 07:49 Nitroglycerin (Nitro-Bid 2%) 1 gm TOP ONETIME ONE Stop: 03/26/17 01:22 Last Admin: 03/26/17 01:26 Dose: 1 gm Ondansetron HCl (Zofran Odt) 4 mg PO Q4H PRN PRN Reason: nausea, able to take PO Ondansetron HCl (Zofran) 4 mg IVPUSH Q4H PRN PRN Reason: Nausea Sodium Chloride (Saline Flush) 10 ml FLUSH ASDIRECTED PRN PRN Reason: Keep Vein Open Last Admin: 03/26/17 01:25 Dose: 10 ml Sodium Chloride (Saline Flush) 2.5 ml FLUSH ASDIRECTED PRN PRN Reason: Keep Vein Open Last Admin: 03/26/17 01:25 Dose: 2.5 ml Sodium Chloride (Saline Flush) 10 ml FLUSH ASDIRECTED PRN PRN Reason: Keep Vein Open Sodium Chloride (Saline Flush) 2.5 ml FLUSH ASDIRECTED PRN PRN Reason: Keep Vein Open Temazepam (Restoril) 15 mg PO BEDTIME PRN PRN Reason: Sleep *Q Meaningful Use (DIS) - VTE *Q VTE Criteria *Q: - Stroke *Q Stroke Criteria *Q: - AMI *Q AMI Criteria *Q:
--- NOTE | 2017-03-27 18:32 | CR ---
EXAM DATE: 03/26/17 PATIENT'S AGE: 89 Patient: CECY SILVA Facility: [place], [place] Site . Site : [id number] Study: XRay Chest [id number]/21/2018 1:19:37 AM Ordering Physician: Doctor Melo Final Report: INDICATION: CP, SOB Past smoker INDICATION: Chest pain and shortness of breath. TECHNIQUE: Single view portable. FINDINGS: Heart size is mildly prominent. The lungs demonstrate no significant infiltrate or pulmonary edema. Minimal atelectasis in the left lung base is noted. IMPRESSION: No significant infiltrate or pulmonary edema is seen. Cardiomegaly noted. Minimal atelectasis in the left lung base is noted. Dictated by Yimi Perez MD @ 03/26/2017 1:44:25 AM Dictated by: Yimi Perez MD @ 03/26/2017 01:44:31 (Electronic Signature) Report Signed by Proxy. NISHANT
--- NOTE | 2017-03-30 12:42 | ECHO ---
The echocardiogram report can be seen in this patient's EMR (electronic medical record) in the Reports section. The report has also been scanned into PACS and can be seen there. NISHANT
== END 2017-03-27 13:39 | disposition home or self-care (01) ==
LOC: MW.ED 00:47 → MW.MS 02:31 → MW.ED 02:52
PROVIDERS: ADMIT Family Medicine; ATTEND Family Medicine
DX: R07.89 Other chest pain (principal); R06.02 Shortness of breath; I25.10 Atherosclerotic heart disease of native coronary artery without angina pectoris; I48.91 Unspecified atrial fibrillation; I11.0 Hypertensive heart disease with heart failure; I50.9 Heart failure, unspecified; E78.5 Hyperlipidemia, unspecified; E11.9 Type 2 diabetes mellitus without complications; E78.00 Pure hypercholesterolemia, unspecified; M19.90 Unspecified osteoarthritis, unspecified site; Z79.01 Long term (current) use of anticoagulants; Z79.4 Long term (current) use of insulin; Z79.891 Long term (current) use of opiate analgesic; Z79.899 Other long term (current) drug therapy; Z95.5 Presence of coronary angioplasty implant and graft; Z96.649 Presence of unspecified artificial hip joint; Z90.79 Acquired absence of other genital organ(s)
CPT/HCPCS: 36415; 71045; 80048; 80053; 80061; 82553; 82962; 83735; 83880; 84484; 85025; 85027; 85610; 87804; 93005; 93306; 96374; 99285; A9270; J1815; J1940; J2270; 96375; 96376; 99284; G0378